=== PATIENT | male | born 1985 | race Caucasian/White ===

== ENCOUNTER 2021-09-04 02:38 | Emergency (ER) | payer SELFPAY ==
[~2021-09-04] VITALS: Ht 180.3 cm; Wt 77.1 kg
[2021-09-04 03:01] VITALS: BP 99/87
[2021-09-04 03:28] LABS: BASOPHILS % (AUTO) 0.5 % (0.0-5.0); EOSINOPHILS % (AUTO) 0.6 % (0.0-8.0); HEMATOCRIT 44.1 % (42-54); LYMPHOCYTES % (AUTO) 18.3 % (21.0-51.0); MEAN CORPUSCULAR HEMOGLOBIN 29.2 pg (27.0-33.0); MEAN CORPUSCULAR HGB CONC 33.6 g/dL (32.0-36.0); MEAN CORPUSCULAR VOLUME 87.2 fL (79-99); MONOCYTES % (AUTO) 8.2 % (3.0-13.0); NEUTROPHILS % (AUTO) 72.2 % (40.0-77.0); PLATELET COUNT (AUTO) 348 K/uL (130-400); RED BLOOD CELL COUNT(AUTO) 5.06 MIL/uL (4.50-6.20); RED CELL DISTRIBUTION WIDTH 12.9 % (11.0-15.5); WHITE BLOOD COUNT (AUTO) 8.9 K/uL (4.8-10.8)
[2021-09-04 03:36] LABS: CREATININE 1.2 mg/dL (0.5-1.5); POTASSIUM 3.8 mmol/L (3.5-5.1)
[2021-09-04 03:41] LABS: ALBUMIN 4.1 g/dL (3.5-5.0); BILIRUBIN,TOTAL 0.8 mg/dL (0.2-1.0); TOTAL PROTEIN, SERUM 7.8 g/dL (6.0-8.3)
== END 2021-09-04 03:53 | disposition left against medical advice (07) ==
LOC: EDH 02:38
DX: T43.621A Poisoning by amphetamines, accidental (unintentional), initial encounter (principal); F19.10 Other psychoactive substance abuse, uncomplicated; R06.02 Shortness of breath; Y92.89 Other specified places as the place of occurrence of the external cause
CPT/HCPCS: 36415; 80053; 85025

== ENCOUNTER 2021-09-04 08:57 | Inpatient (IN) | payer OTHER ==
[~2021-09-04] VITALS: Ht 180.3 cm; Wt 63.5 kg
[2021-09-04] MEDS ORDERED: LORAZEPAM 2 MG/ML 1 ML VIAL IVP ONE (09:30)
[2021-09-04] MEDS ORDERED: 0.9%NACL 1000ML 1,000 ML IV ONE (09:30)
[2021-09-04 09:38] LABS: BASOPHILS % (AUTO) 0.3 % (0.0-5.0); EOSINOPHILS % (AUTO) 0.2 % (0.0-8.0); HEMATOCRIT 43.4 % (42-54); LYMPHOCYTES % (AUTO) 18.5 % (21.0-51.0); MEAN CORPUSCULAR HEMOGLOBIN 29.4 pg (27.0-33.0); MEAN CORPUSCULAR HGB CONC 33.9 g/dL (32.0-36.0); MEAN CORPUSCULAR VOLUME 86.8 fL (79-99); MONOCYTES % (AUTO) 10.4 % (3.0-13.0); NEUTROPHILS % (AUTO) 70.4 % (40.0-77.0); PLATELET COUNT (AUTO) 348 K/uL (130-400); RED CELL DISTRIBUTION WIDTH 12.7 % (11.0-15.5); WHITE BLOOD COUNT (AUTO) 12.6 K/uL (4.8-10.8)
[2021-09-04] MEDS: LORAZEPAM 2 MG/ML 1 ML VIAL IVP SCH ×3 (09:57→10:25)
[2021-09-04 10:13] LABS: ALBUMIN 4.1 g/dL (3.5-5.0); BILIRUBIN,TOTAL 0.9 mg/dL (0.2-1.0); CREATININE 1.3 mg/dL (0.5-1.5); TOTAL PROTEIN, SERUM 7.5 g/dL (6.0-8.3)
[2021-09-04] MEDS ORDERED: MIDAZOLAM HCL 5 MG/ML 2ML VIAL IV ONE ×2 (10:15→11:27)
[2021-09-04] MEDS: MIDAZOLAM HCL 1 MG/ML 2ML VIAL IVP SCH ×3 (10:24→11:11)
[2021-09-04] MEDS ORDERED: MIDAZOLAM HCL 1 MG/ML 5ML VIAL IVP ONE (11:00)
[2021-09-04] MEDS ORDERED: MIDAZOLAM HCL 1 MG/ML 2ML VIAL IVP SCH (11:30)
[2021-09-04] MEDS ORDERED: MIDAZOLAM HCL 5 MG/ML 2ML VIAL IV SCH (12:00)
[2021-09-04] MEDS ORDERED: 0.9%NACL 1000ML 1,000 ML IV SCH (12:30)
[2021-09-04] MEDS ORDERED: ONDANSETRON 4MG INJ IV PRN (12:30)
[2021-09-04] MEDS ORDERED: 0.9%NACL 50ML 50 ML IV ONE (12:40)
[2021-09-04] MEDS: CEFTRIAXONE 1G VIAL IV SCH ×2 (12:51→12:57)
[2021-09-04] MEDS ORDERED: LACTATED RINGERS 1000ML 1,000 ML IV SCH (13:00)
[2021-09-04] MEDS ORDERED: HYDRALAZINE 20MG/ML VIAL IM PRN (13:30)
[2021-09-04] MEDS ORDERED: MIDAZOLAM HCL 1 MG/ML 2ML VIAL IVP PRN (13:30)
[2021-09-04] MEDS ORDERED: HALOPERIDOL INJ 5 MG/ML VIAL IV PRN (13:30)
[2021-09-04 20:58] VITALS: BP 119/76
[2021-09-04] MEDS ORDERED: FAMOTIDINE 20MG VIAL IV SCH (21:00)
[2021-09-04 21:29] LABS: SALICYLATE 3.5 mg/dL (2.8-20.0)
[2021-09-04 21:30] LABS: ACETAMINOPHEN < 1 mcg/mL (10-29)
[2021-09-04 21:33] LABS: APPEARANCE,URINE Clear (CLEAR); BILIRUBIN,URINE Negative (NEGATIVE); COLOR,URINE Dark Yellow (YELLOW); GLUCOSE, URINE (UA) Negative (NEGATIVE); KETONES,URINE Negative (NEGATIVE); LEUKOCYTE ESTERASE ,URINE Negative (NEGATIVE); NITRATE,URINE Negative (NEGATIVE); OCCULT BLOOD,URINE Negative (NEGATIVE); PH,URINE 6.5 (5.0-8.0); PROTEIN,URINE Negative (NEGATIVE)
[2021-09-04 22:18] LABS: AMPHET/METH SCREEN,URINE POSITIVE (NEGATIVE); BARBITURATE SCREEN, URINE NEGATIVE (NEGATIVE); BENZODIAZEPINES SCREEN,URINE POSITIVE (NEGATIVE); CANNABINOID SCREEN,URINE NEGATIVE (NEGATIVE); COCAINE SCREEN,URINE POSITIVE (NEGATIVE); OPIATE SCREEN,URINE NEGATIVE (NEGATIVE); PHENCYCLIDINE SCREEN,URINE NEGATIVE (NEGATIVE)
[2021-09-05] MEDS ORDERED: ENOXAPARIN SODIUM 40 MG/0.4 ML SYRINGE SQ SCH (09:00)
== END 2021-09-04 22:56 | disposition left against medical advice (07) | DRG 894 ==
LOC: EDH 08:57 → EDHIP 08:58
PROVIDERS: ADMIT Hospitalist; ATTEND Hospitalist
DX: F15.129 Other stimulant abuse with intoxication, unspecified (principal); G92.9 Unspecified toxic encephalopathy; M62.82 Rhabdomyolysis; D72.829 Elevated white blood cell count, unspecified
CPT/HCPCS: 36415; 71045; 80053; 80305; 81003; 82550; 83605; 83880; 84145; 84484; 85025; 87040; 87088; 93005; G0378; G0481; J0696; J2060; J2250; J3490; J7030